=== PATIENT | female | born 1985 | race African-American/Black ===

== ENCOUNTER 2025-10-04 09:00 | Day surgery (SDC) | payer OTHER ==
[2025-09-27 10:55] VITALS: BP 127/84; BP 129/86
[2025-09-27 11:40] LABS: URINE APPEARANCE Cloudy; URINE BILIRRUBIN Negative (NEGATIVE); URINE BLOOD NHT; URINE COLOR Yellow; URINE GLUCOSE Negative (NEGATIVE); URINE KETONE Negative (NEGATIVE); URINE LEUKOCYTE Large; URINE NITRATE Negative; URINE PROTEIN Negative (NEGATIVE); URINE UROBILINOGEN 0.2 E.U./dl
[2025-09-27 11:43] LABS: BASO % 0.3 % (0.1-1.2); EOS # 0.10 (0.04-0.54); EOS % 2.9 % (0.7-7.0); LYMPH # 1.18 (1.18-3.74); LYMPH % 34.3 % (19.3-53.1); MEAN PLATELET VOLUME 9.20 fl (9.4-12.4); MONO # 0.26 (0.24-0.82); MONO % 7.6 % (4.7-12.5); NEUT # 1.88 (1.56-6.13); NEUT % 54.6 % (34.0-71.1); RED CELL DISTRIBUTION WIDTH 12.6 % (11.6-14.4)
[2025-09-27 11:44] LABS: URINE BACTERIA 2973.6 uL (0.0-1933); URINE CAST 1.61 uL (0.0-1.40); URINE EPITHELIAL CELLS 69.6 uL (0.0-38.8); URINE RBC 23.9 uL (0.0-20.8); URINE WBC 679.0 uL (0.0-23.2)
[2025-09-27 12:08] LABS: INR 1.04
[2025-09-27 12:21] LABS: TYPE CELLS SQUAMOUS; URINE MUCUS SCANT
[2025-09-27 12:46] LABS: BUN CREA RATIO 15.0 (7.0-25.0); CREATININE SERUM 0.46 mg/dL (0.55-1.02); GFR 149.7; GLUCOSE FASTING 77.0 mg/dL (65-100); OSMOLALITY SERUM 284.0 MOSM/KG (275-295)
[~2025-10-04] VITALS: Ht 152.4 cm; Wt 75.3 kg
[~2025-10-04 09:00] MED LIST: FINASTERIDE1 MG PO; NEXIUM 24HR20 M1 PO; SIMVASTATIN40 MG PO; TAMS0.4C PO
[2025-10-04] MEDS ORDERED: CEFAZOLIN SODIUM 1,000 MG VIAL ONE (10:48)
[2025-10-04] MEDS ORDERED: POVIDONE-IODINE 118 ML BOTT TOP ONE (12:32)
[2025-10-04] MEDS ORDERED: LIDOCAINE HCL 1%/EPINEPHRINE 20ML VIAL IJ ONE (12:33)
[2025-10-04] MEDS ORDERED: CIPROFLOXACIN HCL 0.175 MG/DR DROPS OP ONE (14:30)
[2025-10-04] MEDS ORDERED: CEPHALEXIN500 MG PO (15:39)
[2025-10-04] MEDS ORDERED: CIPROFLOXACIN2.5 ML OTIC (15:40)
[2025-10-04] MEDS ORDERED: ONDANSETRON HCL 2 MG/ML VIAL ONE (16:23)
== END 2025-10-04 19:05 | disposition home or self-care (01) ==
LOC: CIR.AMB 09:00
PROVIDERS: ATTEND Otolaryngology Otology & Neurotology
DX: H72.01 Central perforation of tympanic membrane, right ear (principal); H90.11 Conductive hearing loss, unilateral, right ear, with unrestricted hearing on the contralateral side